=== PATIENT | female | born 2000 | race Caucasian/White ===

== ENCOUNTER 2021-02-20 21:51 | Emergency (ER) | payer OTHER ==
[2021-02-20 22:38] LABS: #Basophils 0.1 thou/uL (0.0-0.2); #Eosinphils 0.5 thou/uL (0.0-0.7); #Lymphocytes 2.4 thou/uL (1.20-3.40); #Monocytes 0.5 thou/uL (0.11-0.59); #Neutrophils 3.8 thou/uL (1.40-6.50); %Basophils 1.1 % (0.0-1.0); %Eosinophils 6.9 % (0.0-10.0); %Lymphocytes 32.8 % (21.0-51.0); %Monocytes 6.7 % (0.0-10.0); %Neutrophils 52.5 % (42.0-75.0); Hemoglobin 12.8 g/dL (12.0-16.0); Mean Corpuscular HGB CONC 33.6 g/dL (32.0-36.0); Mean Corpuscular Hemoglobin 31.4 pg (27.0-31.0); Mean Corpuscular Volume 93.2 fL (78.0-98.0); Mean Platelet Volume 7.5 fL (7.4-10.4); Platelet Count 343 thou/uL (130-400); RBC Distribution Width 11.8 % (11.5-14.5); Red Blood Cell (RBC) Count 4.08 mill/uL (4.20-5.40); White Blood Cell (WBC) Count 7.3 thou/uL (4.8-10.8)
[2021-02-20 22:52] LABS: BHCG - Serum Negative (NEGATIVE); Pregs Control Background? CLEAR/WHITE (CLR/WHITE); Pregs Control Bar Appear? YES (CONTROL BAR)
== END 2021-02-21 | disposition home or self-care (01) ==
LOC: ERS 21:51
DX: K60.2 Anal fissure, unspecified (principal); K92.1 Melena; Z87.442 Personal history of urinary calculi
CPT/HCPCS: 84703; 85025; 93005

== ENCOUNTER 2021-12-20 09:05 | Outpatient (CLI) | payer BC | END 2021-12-20 09:06 | disposition home or self-care (01) | LOC: RAD 09:05 | PROVIDERS: ATTEND Urology | DX: Z87.442 Personal history of urinary calculi (principal) | CPT/HCPCS: 74018 ==

== ENCOUNTER 2022-06-09 07:29 | Emergency (ER) | payer BC ==
[2022-06-09] MEDS ORDERED: Ondansetron ODT 4 MG TAB ONE (08:43)
[2022-06-09] MEDS ORDERED: Acetaminophen 500 MG TAB ONE (08:43)
[2022-06-09] MEDS ORDERED: Ketorolac Tromethamine 30 MG/ML VIAL ONE (08:43)
== END 2022-06-09 08:51 | disposition home or self-care (01) ==
LOC: ERS 07:29
DX: H60.391 Other infective otitis externa, right ear (principal); L08.89 Other specified local infections of the skin and subcutaneous tissue; R51.9 Headache, unspecified
CPT/HCPCS: 96372; 99283; J1885; Q0162